=== PATIENT | male | born 1990 | race Caucasian/White ===

== ENCOUNTER 2023-02-27 16:55 | Emergency (ER) | payer SELFPAY ==
[~2023-02-27] VITALS: Ht 188 cm; Wt 74.8 kg
[2023-02-27] MEDS ORDERED: HYDROCODONE/APAP 10-325 MG TABLET PO ONE (17:45)
[2023-02-27] MEDS ORDERED: KETOROLAC TROMETHAMINE 30 MG INJ IM ONE (17:45)
[2023-02-27] MEDS ORDERED: KETOROLAC TROMETHAMINE 30 MG INJ ONE (18:07)
[2023-02-27] MEDS ORDERED: HYDROCODONE/APAP 10-325 MG TABLET ONE (18:07)
[2023-02-27 18:24] LABS: POTASSIUM 3.6 mmol/L (3.5-5.1)
[2023-02-27 18:26] LABS: HEMATOCRIT 42.1 % (36.7-47.1); MEAN CORPUSCULAR HEMOGLOBIN 29.8 uug (23.8-33.4); MEAN CORPUSCULAR VOLUME 88.8 fL (73.0-96.2); PLATELET COUNT (AUTO) 143 K/uL (152-348)
[2023-02-27 18:37] LABS: BILIRUBIN,TOTAL 0.6 mg/dL (0.2-1.0); TOTAL PROTEIN, SERUM 6.8 g/dL (6.4-8.2)
[2023-02-27 18:56] VITALS: BP 110/67
== END 2023-02-27 18:56 | disposition home or self-care (01) ==
LOC: ER 16:57
DX: R07.89 Other chest pain (principal)
CPT/HCPCS: 99285; 71045; 80053; 83880; 85025; 85610; 84484; 36415; 93005; 96372; J1885; A4663